=== PATIENT | female | born 1945 | race Caucasian/White ===

== ENCOUNTER 2019-02-07 23:08 | Emergency (ER) | payer OTHER ==
[~2019-02-07] VITALS: Ht 160 cm; Wt 56.7 kg
[2019-02-07] MEDS ORDERED: [UNRECOGNIZED DRUG - OTHER] (23:18)
[2019-02-07] MEDS ORDERED: BISO5TAB2 PO (23:18)
[2019-02-07] MEDS ORDERED: PERINDOPRIL (23:19)
--- NOTE | 2019-02-07 23:31 | NUR ---
Dr. Carrasco at bedside for MSE.
[2019-02-07] MEDS ORDERED: SULFAMETH/TRIMETH 800/160 MG TABLET ONE (23:38)
[2019-02-07] MEDS ORDERED: IBUPROFEN 600 MG TABLET ONE (23:38)
[2019-02-07] MEDS ORDERED: IBUPROFEN 600 MG TABLET PO ONE (23:45)
[2019-02-07] MEDS ORDERED: SULFAMETH/TRIMETH 800/160 MG TABLET PO ONE (23:45)
--- NOTE | 2019-02-07 23:47 | NUR ---
Patient discharged to home in stable conditon. Written and verbal after care instructions given. Patient verbalizes understanding of instructions.
== END 2019-02-07 23:50 | disposition home or self-care (01) ==
LOC: ER 23:12
DX: M65.4 Radial styloid tenosynovitis [de Quervain] (principal); Z90.710 Acquired absence of both cervix and uterus; Z79.899 Other long term (current) drug therapy
CPT/HCPCS: A4663